=== PATIENT | male | born 1995 | race Caucasian/White ===

== ENCOUNTER 2019-03-09 17:53 | Emergency (ER) | payer SELFPAY ==
[~2019-03-09] VITALS: Ht 172.7 cm; Wt 71.8 kg
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
[2019-03-09] MEDS ORDERED: LIDOCAINE 2% VISCOUS 15 ML SOLUTION. SWSW ONE (18:45)
--- NOTE | 2019-03-09 18:47 | RAD ---
3 view right ankle 03/09/2019 CLINICAL INDICATION: Right ankle trauma with inability to flex and extend the joint. COMPARISON: None. FINDINGS: No acute fracture or traumatic malalignment. Moderate ankle joint effusion. No significant thickening of the Achilles tendon. Kager's fat is maintained. IMPRESSION: 1. No acute osseous abnormality. 2. Moderate ankle joint effusion, may represent internal soft tissue derangement. Electronically signed by: Santiago Otero MD (03/09/2019 6:43 PM) [id number]
[2019-03-09 19:30] VITALS: BP 147/91
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
[2019-03-09] MEDS ORDERED: LIDOCAINE 1% Multi-Dose 20 ML VIAL. INJ ONE (20:45)
[2019-03-09] MEDS ORDERED: oxyCODONE/APAP 10/325 1 TAB TABLET PO ONE (21:15)
[2019-03-09] MEDS ORDERED: ONDANSETRON PF 4 MG/2 ML VIAL. ONE (21:18)
[2019-03-09] MEDS ORDERED: NEOMY/BACITR/POLYMYXIN OINT PACKET. TP ONE (21:37)
[2019-03-09] MEDS ORDERED: OXYC1TAB15 PO (22:14)
[2019-03-09] MEDS ORDERED: NAPR-683 PO (22:14)
[2019-03-09] MEDS ORDERED: CEPH-264 PO (22:14)
[2019-03-09] MEDS ORDERED: METH-38 PO (22:14)
[2019-03-09] MEDS ORDERED: DIPHTH,PERTUSS(ACELL),TET TOX 0.5 ML DISP.SYRIN. VAX IM ONE (22:15)
[2019-03-09] MEDS ORDERED: ONDANSETRON PF 4 MG/2 ML VIAL. IV ONE (22:30)
== END 2019-03-09 22:30 | disposition home or self-care (01) ==
LOC: ER 17:53
DX: S52.134A Nondisplaced fracture of neck of right radius, initial encounter for closed fracture (principal); S93.491A Sprain of other ligament of right ankle, initial encounter; S40.212A Abrasion of left shoulder, initial encounter; S50.311A Abrasion of right elbow, initial encounter; S80.212A Abrasion, left knee, initial encounter; S80.211A Abrasion, right knee, initial encounter; Z72.0 Tobacco use; V29.9XXA Motorcycle rider (driver) (passenger) injured in unspecified traffic accident, initial encounter; Y93.39 Activity, other involving climbing, rappelling and jumping off; Y92.410 Unspecified street and highway as the place of occurrence of the external cause; Y99.8 Other external cause status
CPT/HCPCS: 12002; 29105; 29515; 73080; 73610; 90471; 90715; 96374; 99284; J2405